=== PATIENT | female | born 2005 | race Caucasian/White ===

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

== ENCOUNTER 2024-08-29 22:56 | Emergency (ER) | payer OTHER, MEDICAID, SELFPAY ==
[2024-08-29 23:15] VITALS: BP 141/86; PULSE 118; RESP 17; TEMP 36.7; O2SAT 99; BMI 31.8
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
--- NOTE | 2024-08-29 23:55 | PC.NURSE ---
Declining blood draw. Dr De La Torre notified.
[2024-08-30 00:02] LABS: Ur Creatinine Normal (Normal); Ur Specific Gravity Normal (Normal); Urine Tetrahydrocannabinol Negative (Negative); Urine pH Normal (Normal)
[2024-08-30 00:03] LABS: Appearance Urine UA CLEAR; Bilirubin Urine UA NEGATIVE (NEGATIVE); Color Urine UA YELLOW; Glucose Urine UA NEGATIVE (Negative); Ketones Urine UA NEGATIVE (NEGATIVE); Leukocyte Esterase Urine UA NEGATIVE (NEGATIVE); Nitrite Urine UA POSITIVE (Negative); Occult Blood Urine UA 1+ (Negative); Protein Urine UA NEGATIVE (Negative); UR Morphine/Opiate cutoff 300 Negative (Negative); Urine Amphetamines Negative (Negative); Urine Barbiturates Negative (Negative); Urine Benzodiazepines Negative (Negative); Urine Cocaine Negative (Negative); Urine MDMA Negative (Negative); Urine Methadone Negative (Negative); Urine Methamphetamines Negative (Negative); Urine Oxycodone Negative (Negative); Urine Phencyclidine Negative (Negative); Urine Tricyclic Antidepressant Negative (Negative); Urobilinogen Urine UA 0.2 E.U./dL (0.2)
[2024-08-30 00:04] LABS: pH Urine UA 5.5 (4.5-8.0)
[2024-08-30 00:05] LABS: RBC Urine 0-1/HPF (0-5/HPF); Urine Volume 10mL (spun); WBC Urine 0-1/HPF (0-5/HPF)
[2024-08-30 00:06] LABS: Bacteria Urine Moderate (10-30); Culture Indicated Urine Specimen Cultured; Squamous Epithelial Cell Urine 1-5 /HPF (0-5/HPF)
== END 2024-08-30 00:12 | disposition home or self-care (01) ==
PROVIDERS: Emergency Provider Emergency Medicine; PCP Family Medicine
DX: F10.129 Alcohol abuse with intoxication, unspecified (principal)
CPT/HCPCS: 80305; 81001; 87086; 99281; 99282

== ENCOUNTER → 2025-07-06 17:20 | Outpatient (CLI) | payer OTHER, MEDICAID, SELFPAY ==
[2025-07-06 18:12] LABS: Hemoglobin A1C% w Est Avg Glu 5.2 % (4.0-6.0)
[2025-07-06 18:24] LABS: Alanine Aminotransferase 16 IU/L (<35); Albumin 4.4 g/dL (3.5-5.0); Albumin Globulin Ratio 1.4 (1.0-2.8); Alkaline Phosphatase 80 U/L (38-126); Amylase 45 U/L (30-110); Blood Urea Nitrogen 6 mg/dL (7-17); Calcium 9.5 mg/dL (8.4-10.2); Carbon Dioxide 24 mmol/L (22-32); Chloride 103 mmol/L (98-107); Estimated Glomerular Filt Rate > 60 mL/min (>60); Globulin 3.1 g/dL (1.7-4.1); Glucose 116 mg/dL (70-99); HEMOLYSIS < 15 (0-50); Lipase 39 U/L (23-300); Potassium 3.6 mmol/L (3.4-5.1); Sodium 138 mmol/L (137-145); Total Protein 7.5 g/dL (6.3-8.2)
[2025-07-06 18:30] LABS: Add Manual Diff / Slide Review NO; Hematocrit 38.9 % (36-46); Hemoglobin 13.2 g/dL (12.0-16.0); Lymphocytes Absolute Auto 3200 /uL (1100-4500); Mean Corpuscular HGB Conc 33.9 % (30-36); Mean Corpuscular Hemoglobin 26.6 PG (26-34); Mean Corpuscular Volume 78.5 fL (80-100); Platelet Count 334 X10^3/uL (150-400)
[2025-07-06 18:35] LABS: Free T3, Triiodothyronine Free 3.94 pg/mL (2.77-5.27); Free T4, Direct Thyroxine 1.30 ng/dL (0.78-2.19)
[2025-07-06 18:49] LABS: Thyroid Stimulating Hormone 1.18 uIU/mL (0.47-4.68)
[2025-07-06 19:08] LABS: Vitamin B12 636 pg/mL (239-931)
[2025-07-07 13:12] LABS: HEMOLYSIS < 15 (0-50); Iron 39 ug/dL (37-170)
[2025-07-07 13:23] LABS: Percent Iron Saturation 10 % (15-50); Total Iron Binding Capacity 406 ug/dL (265-497); Transferrin 354 mg/dL (206-381)
[2025-07-07 13:49] LABS: Ferritin 34 ng/mL (6-137)
[2025-07-08 21:39] LABS: Deamidated Gliadin Ab IgA 4 units (0-19); Deamidated Gliadin Ab IgG 3 units (0-19); Immunoglobulin A,Qn 119 mg/dL (87-352)
== END ==
PROVIDERS: PCP Family Medicine; Referring Provider Family Medicine; Visit Provider Family Medicine
DX: Z00.00 Encounter for general adult medical examination without abnormal findings (principal); R63.5 Abnormal weight gain; R19.7 Diarrhea, unspecified; R10.84 Generalized abdominal pain; R53.83 Other fatigue; Z13.0 Encounter for screening for diseases of the blood and blood-forming organs and certain disorders involving the immune mechanism
CPT/HCPCS: 36415; 80053; 82150; 82607; 82728; 82784; 83036; 83516; 83540; 83550; 83690; 84439; 84443; 84481; 85025

== ENCOUNTER → 2025-07-08 10:32 | Outpatient (CLI) | payer OTHER, MEDICAID, SELFPAY ==
[2025-07-08 12:45] LABS: Clostridium Difficile Tox PCR Negative for C. diff (Negative)
[2025-07-12 18:12] LABS: H. Pylori Antigen Stool Negative (Negative)
== END ==
PROVIDERS: PCP Family Medicine; Referring Provider Family Medicine; Visit Provider Family Medicine
DX: Z00.00 Encounter for general adult medical examination without abnormal findings (principal); R10.84 Generalized abdominal pain; R19.7 Diarrhea, unspecified; R53.83 Other fatigue; R63.5 Abnormal weight gain; Z13.0 Encounter for screening for diseases of the blood and blood-forming organs and certain disorders involving the immune mechanism
CPT/HCPCS: 82274; 83993; 87177; 87328; 87329; 87338; 87493

== ENCOUNTER → 2025-09-14 06:54 | Outpatient (CLI) | payer OTHER, SELFPAY ==
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
== END ==
LOC: US 06:54
PROVIDERS: PCP Family Medicine; Referring Provider Family Medicine; Visit Provider Family Medicine
DX: R19.7 Diarrhea, unspecified (principal)
CPT/HCPCS: 76700